=== PATIENT | female | born 1995 | race Caucasian/White ===

== ENCOUNTER 2019-07-21 17:07 | Emergency (ER) | payer OTHER ==
[2019-07-21 17:15] VITALS: BP 119/76
[2019-07-21] MEDS ORDERED: IBUPROFEN 800 MG TABLET PO ONE (17:34)
[2019-07-21] MEDS ORDERED: CYCLOBENZAPRINE HCL 10 MG TABLET PO ONE (17:34)
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
== END 2019-07-21 17:54 | disposition home or self-care (01) ==
LOC: ER 17:07
DX: M54.2 Cervicalgia (principal); M54.9 Dorsalgia, unspecified; M54.5 Low back pain; V49.40XA Driver injured in collision with unspecified motor vehicles in traffic accident, initial encounter
CPT/HCPCS: 99283